=== PATIENT | male | born 1955 | race Caucasian/White ===

== ENCOUNTER 2016-03-30 11:09 | Inpatient (IN) | payer OTHER ==
[~2016-03-30] VITALS: Ht 167.6 cm; Wt 114.3 kg
[2016-03-30 11:11] VITALS: BP 112/73; PULSE 86; RESP 16; TEMP 98.2; O2SAT 94
--- NOTE | 2016-03-30 14:49 | PD ---
HPI Chief Complaint: Edema Time Seen by Provider: 14:49 Travel History International Travel<30 days: No Contact w/Intl Traveler<30days: No Traveled to known affect area: No History of Present Illness HPI 61-year-old male with history of hyperlipidemia, osteoarthritis of the right hip presents to the ED for evaluation of one month history of swelling of the right leg and 9/10 pain. Radiating behind the right knee and the medial aspect of the right thigh. Gradual onset. No alleviating or exacerbating factors reported. Patient denies chest pain, palpitations, shortness of breath, dyspnea on exertion. He states that he is awaiting right hip replacement, has attempted to be more active in effort to lose weight. Patient is a current smoker. [facility] Social History Tobacco Use: Yes Allergies-Medications (Allergen,Severity, Reaction): Coded Allergies: Penicillin (Verified Allergy, Unknown, 03/30/16) Reported Meds & Prescriptions Reported Meds & Active Scripts Active Reported Advil (Ibuprofen) 200 Mg Tab 800 Mg PO BID Levothyroxine (Levothyroxine Sodium) 25 Mcg Tab Unknown Dose PO DAILY Review of Systems Except as stated in HPI: all other systems reviewed are Neg Physical Exam Narrative GENERAL: Well-nourished, well-developed pleasant white male in no acute distress. SKIN: Warm and dry. HEAD: Normocephalic. EYES: No scleral icterus. No injection or drainage. NECK: Supple, trachea midline. No JVD or lymphadenopathy. CARDIOVASCULAR: Regular rate and rhythm without murmurs, gallops, or rubs. 2+ DP and radial pulses bilaterally. RESPIRATORY: Breath sounds clear and equal bilaterally. No accessory muscle use. GASTROINTESTINAL: Abdomen soft, non-tender, nondistended. MUSCULOSKELETAL: No cyanosis. Focused right lower extremity exam: 2+ pitting edema to the knee of the right leg. Homans sign positive. Tender to palpation of the inner thigh. No tenderness to popliteal palpitation. No palpable mass in the popliteal area. Patient is able to flex and extend the knee. 2+ DP pulse. BACK: Nontender without obvious deformity. No CVA tenderness. Data Data Last Documented VS Vital Signs Date Time Temp Pulse Resp B/P Pulse Ox O2 Delivery O2 Flow Rate FiO2 03/30/16 11:11 98.2 86 16 112/73 94 Room Air Orders Complete Blood Count With Diff (03/30/16 14:56) Comprehensive Metabolic Panel (03/30/16 14:56) Act Partial Throm Time (Ptt) (03/30/16 14:56) Prothrombin Time / Inr (Pt) (03/30/16 14:56) Iv Access Insert/Monitor (03/30/16 14:56) Electrocardiogram (03/30/16 14:56) Ecg Monitoring (03/30/16 14:56) Oximetry (03/30/16 14:56) Oxygen Administration (03/30/16 14:56) Chest, Single Ap (03/30/16 14:56) Us Leg Venous Doppler (03/30/16 14:56) Sodium Chloride 0.9% Flush (Ns Flush) (03/30/16 15:00) Acetamin-Hydrocod 325-5 Mg ([place] 5-325 (03/30/16 15:00) Ct Pulmonary Angiogram (03/30/16 16:59) Labs Laboratory Tests Test 03/30/16 15:10 White Blood Count 8.7 TH/MM3 Red Blood Count 4.82 MIL/MM3 Hemoglobin 13.9 GM/DL Hematocrit 41.3 % Mean Corpuscular Volume 85.6 FL Mean Corpuscular Hemoglobin 28.8 PG Mean Corpuscular Hemoglobin 33.6 % Concent Red Cell Distribution Width 12.9 % Platelet Count 287 TH/MM3 Mean Platelet Volume 6.5 FL Neutrophils (%) (Auto) 69.5 % Lymphocytes (%) (Auto) 15.1 % Monocytes (%) (Auto) 12.0 % Eosinophils (%) (Auto) 2.6 % Basophils (%) (Auto) 0.8 % Neutrophils # (Auto) 6.1 TH/MM3 Lymphocytes # (Auto) 1.3 TH/MM3 Monocytes # (Auto) 1.0 TH/MM3 Eosinophils # (Auto) 0.2 TH/MM3 Basophils # (Auto) 0.1 TH/MM3 CBC Comment DIFF FINAL Differential Comment Prothrombin Time 11.1 SEC Prothromb Time International 1.0 RATIO Ratio Activated Partial 31.4 SEC Thromboplast Time Sodium Level 136 MEQ/L Potassium Level 3.8 MEQ/L Chloride Level 104 MEQ/L Carbon Dioxide Level 23.3 MEQ/L Anion Gap 9 MEQ/L Blood Urea Nitrogen 12 MG/DL Creatinine 0.97 MG/DL Estimat Glomerular Filtration 79 ML/MIN Rate Random Glucose 98 MG/DL Calcium Level 9.2 MG/DL Total Bilirubin 0.8 MG/DL Aspartate Amino Transf 31 U/L (AST/SGOT) Alanine Aminotransferase 65 U/L (ALT/SGPT) Alkaline Phosphatase 164 U/L Total Protein 8.3 GM/DL Albumin 3.2 GM/DL [facility] Medical Decision Making Medical Screen Exam Complete: Yes Emergency Medical Condition: Yes Differential Diagnosis DVT versus Rao cyst versus osteoarthritis versus dependent edema versus other Narrative Course 61-year-old male with history of hyperlipidemia, osteoarthritis of the right hip presents to the ED for evaluation of one month history of swelling of the right leg and 9/10 pain. Radiating behind the right knee and the medial aspect of the right thigh. Gradual onset. No alleviating or exacerbating factors reported. Patient denies chest pain, palpitations, shortness of breath, dyspnea on exertion. Vitals reviewed. Physical exam reveals a pleasant white male in no acute distress. Chest clear to auscultation bilaterally, equal lung sounds. The left leg is significantly edematous, Homans sign positive, tender to palpation in the medial aspect of the right thigh. 2+ DP pulse. Highly suspicious for DVT. Lab work, chest x-ray, EKG, ultrasound ordered. By mouth pain meds administered. Patient will be transferred to a bed in the medical pod. Please see oncoming provider note for disposition. Keily Canela Mar 30, 2016 14:49
[2016-03-30] MEDS ORDERED: SODIUM CHLORIDE 0.9% FLUSH 5 ML FLUSH IVF PRN (15:00)
[2016-03-30] MEDS ORDERED: ACETAMINOPHEN/HYDROcodone 325 MG/5 MG TAB PO ONE (15:00)
--- NOTE | 2016-03-30 15:23 | RADRPT ---
EXAM DATE/TIME: 03/30/2016 15:17 [facility] COMPARISON: No previous studies available for comparison. INDICATIONS : Patient sent to the emergency room from his primary doctor to be evaluated for a right lower leg bloo d clot. MEDICAL HISTORY : None. SURGICAL HISTORY : None. ENCOUNTER: Initial ACUITY: 3 days PAIN SCORE: 0/10 LOCATION: Bilateral chest FINDINGS: A single view of the chest demonstrates the lungs to be symmetrically aerated without evidence of mas s, infiltrate or effusion. The cardiomediastinal contours are unremarkable. Osseous structures are intact. CONCLUSION: No acute disease. Ezekiel Glasgow MD on March 30, 2016 at 15:21 Board Certified Radiologist. This report was verified electronically.
[2016-03-30 15:31] LABS: AUTOMATED NEUTROPHIL # 6.1 TH/MM3 (1.8-7.7); BASOPHIL # 0.1 TH/MM3 (0-0.2); BASOPHIL % 0.8 % (0.0-2.0); EOSINOPHIL # 0.2 TH/MM3 (0-0.4); EOSINOPHIL % 2.6 % (0.0-4.0); HEMATOCRIT 41.3 % (39.0-51.0); HEMO FLAGS DIFF FINAL; LYMPH % 15.1 % (9.0-44.0); LYMPHOCYTE # 1.3 TH/MM3 (1.0-4.8); MEAN CELL VOLUME 85.6 FL (80.0-100.0); MEAN CORPUSCULAR HEMOGLOBIN 28.8 PG (27.0-34.0); MEAN CORPUSCULAR HGB CONC 33.6 % (32.0-36.0); NEUT % 69.5 % (16.0-70.0); PLATELET COUNT 287 TH/MM3 (150-450); RED BLOOD COUNT 4.82 MIL/MM3 (4.50-5.90); RED CELL DISTRIBUTION WIDTH 12.9 % (11.6-17.2); WHITE BLOOD COUNT 8.7 TH/MM3 (4.0-11.0)
[2016-03-30 15:37] LABS: APTT (PATIENT) 31.4 SEC (24.3-30.1); PROTHROMBIN TIME - PATIENT 11.1 SEC (9.8-11.6)
[2016-03-30 15:51] LABS: ALT (GPT) 65 U/L (12-78); ANION GAP 9 MEQ/L (5-15); AST (GOT) 31 U/L (15-37); BICARBONATE 23.3 MEQ/L (21.0-32.0); BLOOD UREA NITROGEN 12 MG/DL (7-18); CHLORIDE 104 MEQ/L (98-107); GLOMERULAR FILTRATION RATE 79 ML/MIN (>89); POTASSIUM 3.8 MEQ/L (3.5-5.1); SODIUM (NA) 136 MEQ/L (136-145)
[2016-03-30 15:53] LABS: ALKALINE PHOSPHATASE 164 U/L (45-117); TOTAL BILIRUBIN ADULT 0.8 MG/DL (0.2-1.0)
--- NOTE | 2016-03-30 16:06 | RADRPT ---
EXAM DATE/TIME: 03/30/2016 15:28 [facility] COMPARISON: No previous studies available for comparison. INDICATIONS : Right calf pain. MEDICAL HISTORY : Right leg pain. SURGICAL HISTORY : No surgery history. ENCOUNTER: Initial ACUITY: 1 day PAIN SCORE: 6/10 LOCATION: Right leg. TECHNIQUE: Venous ultrasound of the leg was performed from the inguinal ligament to the proximal calf. Real-og e, color Doppler and spectral tracing, compression and augmentation techniques were used. FINDINGS: There is occlusive thrombus throughout the right lower shunt including the common femoral vein, super ficial femoral vein, popliteal vein, peroneal vein and posterior tibial veins. There is also thrombus in the right iliac vein. CONCLUSION: Occlusive thrombus throughout the right lower extremity. Ezekiel Glasgow MD on March 30, 2016 at 16:00 Board Certified Radiologist. This report was verified electronically.
[2016-03-30] MEDS ORDERED: IBUP-988 PO (17:08)
[2016-03-30] MEDS ORDERED: LEVO25TA4 PO (17:08)
[2016-03-30 17:32] VITALS: O2SAT 98
[2016-03-30] MEDS ORDERED: IOHEXOL 350 MG/ML 10 ML VIAL (for RAD DIAG) IV ONE (17:51)
[2016-03-30 18:16] VITALS: BP 125/62; PULSE 73; RESP 17; O2SAT 98
--- NOTE | 2016-03-30 18:18 | RADRPT ---
EXAM DATE/TIME: 03/30/2016 17:48 [facility] COMPARISON: CHEST SINGLE AP, March 30, 2016, 15:17. INDICATIONS : Right leg edema; evaluate for pulmonary embolism. IV CONTRAST: 75 cc Omnipaque 350 (iohexol) IV RADIATION DOSE: 23.42 CTDIvol (mGy) MEDICAL HISTORY : None SURGICAL HISTORY : None. ENCOUNTER: Initial ACUITY: 4 - 6 days PAIN SCALE: 0/10 LOCATION: chest TECHNIQUE: Volumetric scanning of the chest was performed using a pulmonary embolism protocol MIP images were re constructed. Using automated exposure control and adjustment of the mA and/or kV according to patien t size, radiation dose was kept as low as reasonably achievable to obtain optimal diagnostic quality images. FINDINGS: PULMONARY ARTERIES: Small bilateral sagittal emboli are seen distally in the right and left pulmonary arteries. More dist ally, there is a pulmonary embolus of all lobes of both lungs, most severe at the right lower lobe. N o evidence of significant right ventricular enlargement/strain. LUNGS: Trace atelectasis of both bases. Nothing convincing for pulmonary infarct. No pleural effusion or pne umothorax. PLEURAE: There is no pleural thickening or pleural effusion. MEDIASTINUM: There is good visualization of the great vessels of the middle mediastinum. No evidence of mediastin al or hilar adenopathy/mass. MUSCULOSKELETAL: Within normal limits for patient age. MISCELLANEOUS: The visualized upper abdominal organs demonstrate no acute abnormality. CONCLUSION: Extensive bilateral pulmonary emboli as above, including the distal portions of the right and left ma in pulmonary arteries. Trace bibasilar atelectasis. Lungs otherwise clear. Luis Maza MD on March 30, 2016 at 18:13 Board Certified Radiologist. This report was verified electronically.
[2016-03-30 18:39] VITALS: O2SAT 98
--- NOTE | 2016-03-30 18:40 | PD ---
Physical Exam Date Seen by Provider: Mar 30, 2016 Time Seen by Provider: 17:00 Narrative Patient seen initially by PA in triage, please see PA history for further details. 61-year-old male with history of hypertension, right leg chronic hip pain, here with right leg swelling and pain. Workup initiated for rule out DVT. GENERAL: Well-nourished, well-developed pleasant elderly white male patient in no acute distress. SKIN: Warm and dry. HEAD: Normocephalic. EYES: No scleral icterus. No injection or drainage. NECK: Supple, trachea midline. CARDIOVASCULAR: Regular rate and rhythm without murmurs, gallops, or rubs. RESPIRATORY: Breath sounds equal bilaterally. No accessory muscle use. GASTROINTESTINAL: Abdomen soft, non-tender, nondistended. MUSCULOSKELETAL: No cyanosis, or edema. BACK: Nontender without obvious deformity. No CVA tenderness. EXTREMITIES: No clubbing, cyanosis. Mild right lower leg edema. No joint tenderness, effusion, or edema noted. Right calf tenderness. Laboratory Tests Test 03/30/16 15:10 Mean Platelet Volume 6.5 FL (7.0-11.0) Monocytes (%) (Auto) 12.0 % (0.0-8.0) Monocytes # (Auto) 1.0 TH/MM3 (0-0.9) Activated Partial 31.4 SEC Thromboplast Time (24.3-30.1) Estimat Glomerular Filtration 79 ML/MIN (>89) Rate Alkaline Phosphatase 164 U/L (45-117) Total Protein 8.3 GM/DL (6.4-8.2) Albumin 3.2 GM/DL (3.4-5.0) Last [address] Angiography 03/30/16 1975 Signed Impressions: Service Date/Time: March 17:48 - CONCLUSION: Extensive bilateral pulmonary emboli as above, including the distal portions of the right and left main pulmonary arteries. Trace bibasilar atelectasis. Lungs otherwise clear. Luis Maza MD Lower Extremity Ultrasound 03/30/16 4152 Signed Impressions: Service Date/Time: March 15:28 - CONCLUSION: Occlusive thrombus throughout the right lower extremity. Ezekiel Glasgow MD Chest X-Ray 03/30/16 1869 Signed Impressions: Service Date/Time: March 15:17 - CONCLUSION: No acute disease. Ezekiel Glasgow MD Ultrasound reveals right leg DVT. CTA reveals PE. At this point, patient was initiated on heparin drip for treatment. Case is discussed with Dr. Mancia for admission. Data Data Last Documented VS Vital Signs Date Time Temp Pulse Resp B/P Pulse Ox O2 Delivery O2 Flow Rate FiO2 03/30/16 18:16 73 17 125/62 98 Room Air 03/30/16 11:11 98.2 Orders Complete Blood Count With Diff (03/30/16 14:56) Comprehensive Metabolic Panel (03/30/16 14:56) Act Partial Throm Time (Ptt) (03/30/16 14:56) Prothrombin Time / Inr (Pt) (03/30/16 14:56) Iv Access Insert/Monitor (03/30/16 14:56) Electrocardiogram (03/30/16 14:56) Ecg Monitoring (03/30/16 14:56) Oximetry (03/30/16 14:56) Oxygen Administration (03/30/16 14:56) Chest, Single Ap (03/30/16 14:56) Us Leg Venous Doppler (03/30/16 14:56) Sodium Chloride 0.9% Flush (Ns Flush) (03/30/16 15:00) Acetamin-Hydrocod 325-5 Mg ([place] 5-325 (03/30/16 15:00) Ct Pulmonary Angiogram (03/30/16 16:59) Iohexol 350 Inj (Omnipaque 350 Inj) (03/30/16 17:51) Heparin Infusion RAMAKRISHNA.Q1H (03/30/16 18:34) Heparin Inj (Heparin Inj) (03/30/16 18:45) Heparin Inj (Heparin Inj) (03/31/16 00:45) Heparin Inj (Heparin Inj) (03/31/16 00:45) Heparin-D5w Inj (Heparin-D5w Inj) (03/30/16 18:45) Act Partial Throm Time (Ptt) (03/30/16 18:34) Cbc No Diff, Includes Plts (03/30/16 18:34) Cbc No Diff, Includes Plts (04/02/16 06:00) Act Partial Throm Time (Ptt) (03/31/16 01:34) Occult Blood (Hemoccult) Stool (03/30/16 18:34) Admit Order (Ed Use Only) (03/30/16 18:35) Labs Laboratory Tests Test 03/30/16 15:10 White Blood Count 8.7 TH/MM3 Red Blood Count 4.82 MIL/MM3 Hemoglobin 13.9 GM/DL Hematocrit 41.3 % Mean Corpuscular Volume 85.6 FL Mean Corpuscular Hemoglobin 28.8 PG Mean Corpuscular Hemoglobin 33.6 % Concent Red Cell Distribution Width 12.9 % Platelet Count 287 TH/MM3 Mean Platelet Volume 6.5 FL Neutrophils (%) (Auto) 69.5 % Lymphocytes (%) (Auto) 15.1 % Monocytes (%) (Auto) 12.0 % Eosinophils (%) (Auto) 2.6 % Basophils (%) (Auto) 0.8 % Neutrophils # (Auto) 6.1 TH/MM3 Lymphocytes # (Auto) 1.3 TH/MM3 Monocytes # (Auto) 1.0 TH/MM3 Eosinophils # (Auto) 0.2 TH/MM3 Basophils # (Auto) 0.1 TH/MM3 CBC Comment DIFF FINAL Differential Comment Prothrombin Time 11.1 SEC Prothromb Time International 1.0 RATIO Ratio Activated Partial 31.4 SEC Thromboplast Time Sodium Level 136 MEQ/L Potassium Level 3.8 MEQ/L Chloride Level 104 MEQ/L Carbon Dioxide Level 23.3 MEQ/L Anion Gap 9 MEQ/L Blood Urea Nitrogen 12 MG/DL Creatinine 0.97 MG/DL Estimat Glomerular Filtration 79 ML/MIN Rate Random Glucose 98 MG/DL Calcium Level 9.2 MG/DL Total Bilirubin 0.8 MG/DL Aspartate Amino Transf 31 U/L (AST/SGOT) Alanine Aminotransferase 65 U/L (ALT/SGPT) Alkaline Phosphatase 164 U/L Total Protein 8.3 GM/DL Albumin 3.2 GM/DL [facility] Medical Record Reviewed: Yes Supervised Visit with BRIGIDO: Yes Diagnosis Primary Impression: Pulmonary embolism Admitting Information Admitting Physician Requests: Truman Kim MD Mar 30, 2016 18:40
[2016-03-30] MEDS ORDERED: HEPARIN SODIUM - IV 10,000 UNITS/10 ML VIAL IV ONE (18:45)
[2016-03-30] MEDS ORDERED: ONDANSETRON HCL 4 MG/2 ML VIAL IV PUSH PRN (18:45)
[2016-03-30] MEDS ORDERED: ACETAMINOPHEN/HYDROcodone 325 MG/5 MG TAB PO PRN (18:45)
[2016-03-30] MEDS ORDERED: ACETAMINOPHEN 325 MG TAB PO PRN ×2 (18:45→19:15)
[2016-03-30 18:54] LABS: HEMATOCRIT 36.6 % (39.0-51.0); MEAN CELL VOLUME 84.3 FL (80.0-100.0); MEAN CORPUSCULAR HEMOGLOBIN 28.7 PG (27.0-34.0); MEAN CORPUSCULAR HGB CONC 34.1 % (32.0-36.0); PLATELET COUNT 258 TH/MM3 (150-450); RED BLOOD COUNT 4.34 MIL/MM3 (4.50-5.90); RED CELL DISTRIBUTION WIDTH 13.3 % (11.6-17.2); REVIEW FLAG FINAL
[2016-03-30] MEDS: HEPARIN-D5W INJ 250 ML IV SCH (18:57)
--- NOTE | 2016-03-30 19:06 | HHI.HP ---
[facility] Service [facility] Primary [facility] Physician [facility] Admission Diagnosis pulmonary embolism Diagnoses: (1) DVT (deep venous thrombosis) Diagnosis: Principal (2) PE (pulmonary thromboembolism) Diagnosis: Principal (3) Hip pain, right Diagnosis: Principal (4) Tobacco abuse Diagnosis: Principal Travel History International Travel<30 Days: No Contact w/Intl Traveler <30 Da: No Traveled to Known Affected Are: No History of Present Illness This is a 61-year-old male with a PMH of Hypothyroidism and Right Hip Osteoarthritis who was referred to the ER by his PCP at the [facility] for evaluation of right lower extremity swelling and concern for DVT. Per pt, right leg swelling started approx 1wk ago and has gotten progressively worse over the last 1-2 days. States he has severe right hip OA and has upcoming right hip surgery, so he thought his symptoms were due to his hip. Seen by PCP at [facility] today and referred to ER. Denies fever, chills, chest pain or SOB. On arrival , BP 112/73, HR 86, O2 sat 94% on RA, Afebrile. CBC essentially unremarkable. Chemistry essentially unremarkable. RLE Ultrasound with occlusive thrombus throughout right lower extremity. CXR with no acute findings. CTA Pulm w/ extensive bilateral PE including the distal portions of the right and left main pulmonary arteries. No previous h/o DVT/PE. Started on Heparin gtt in ER. Review of Systems Other ROS: 14 point review of systems otherwise negative. Past Family Social History Past Medical History PMH: Hypothyroidism and Right Hip Osteoarthritis Past Surgical History PAST SURGICAL HISTORY: Rhinoplasty Allergies: Coded Allergies: Penicillin (Verified Allergy, Unknown, 03/30/16) Family History PAST FAMILY HISTORY: Reviewed. No h/o DM or CAD Social History PAST SOCIAL HISTORY: Negative for alcohol or drugs. Positive for tobacco. Physical Exam Vital Signs Vital Signs Date Time Temp Pulse Resp B/P Pulse Ox O2 Delivery O2 Flow Rate FiO2 03/30/16 18:39 98 21 03/30/16 18:16 73 17 125/62 98 Room Air 03/30/16 17:40 17 03/30/16 17:33 78 17 98 Room Air 03/30/16 17:33 98 Room Air 03/30/16 17:32 98 Room Air 03/30/16 11:11 98.2 86 16 112/73 94 Room Air Physical Exam PE: GENERAL: Very pleasant middle-aged white male in no acute distress. HEENT: PERRLA, EOMI. No scleral icterus or conjunctival pallor. No lid lag or facial droop. CARDIOVASCULAR: Regular rate and rhythm. No obvious murmurs to auscultation. No chest tenderness to palpation. RESPIRATORY: No obvious rhonchi or wheezing. Clear to auscultation. Breath sounds equal bilaterally. GASTROINTESTINAL: Abdomen soft, non-tender, nondistended. BS normal. MUSCULOSKELETAL: Extremities without clubbing or cyanosis. RLE edema, erythema. Pulses intact bilaterally. NEUROLOGICAL: Awake, alert and oriented x4. No focal neurologic deficits. Moving both upper and lower extremities spontaneously. Laboratory Laboratory Tests Test 03/30/16 03/30/16 15:10 18:41 White Blood Count 8.7 8.0 Red Blood Count 4.82 4.34 Hemoglobin 13.9 12.5 Hematocrit 41.3 36.6 Mean Corpuscular Volume 85.6 84.3 Mean Corpuscular Hemoglobin 28.8 28.7 Mean Corpuscular Hemoglobin 33.6 34.1 Concent Red Cell Distribution Width 12.9 13.3 Platelet Count 287 258 Mean Platelet Volume 6.5 6.1 Neutrophils (%) (Auto) 69.5 Lymphocytes (%) (Auto) 15.1 Monocytes (%) (Auto) 12.0 Eosinophils (%) (Auto) 2.6 Basophils (%) (Auto) 0.8 Neutrophils # (Auto) 6.1 Lymphocytes # (Auto) 1.3 Monocytes # (Auto) 1.0 Eosinophils # (Auto) 0.2 Basophils # (Auto) 0.1 CBC Comment DIFF FINAL Differential Comment Prothrombin Time 11.1 Prothromb Time International 1.0 Ratio Activated Partial 31.4 Thromboplast Time Sodium Level 136 Potassium Level 3.8 Chloride Level 104 Carbon Dioxide Level 23.3 Anion Gap 9 Blood Urea Nitrogen 12 Creatinine 0.97 Estimat Glomerular Filtration 79 Rate Random Glucose 98 Calcium Level 9.2 Total Bilirubin 0.8 Aspartate Amino Transf 31 (AST/SGOT) Alanine Aminotransferase 65 (ALT/SGPT) Alkaline Phosphatase 164 Total Protein 8.3 Albumin 3.2 Result Diagram: 03/30/16 1841 03/30/16 1510 Assessment and Plan Problem List: (1) DVT (deep venous thrombosis) ICD Code: I82.409 Status: Acute (2) PE (pulmonary thromboembolism) ICD Code: I26.99 Status: Acute (3) Hip pain, right ICD Code: M25.551 Status: Acute (4) Tobacco abuse ICD Code: Z72.0 Status: Acute Assessment and Plan A/P: 1. RLE DVT: Acute. RLE swelling/erythema x1 wk. RLE Doppler w/ occlusive thrombus throughout RLE, images reviewed. No h/o DVT in the past. Decreased mobility secondary to Right Hip Pain and + Tobacco Abuse. Currently on Heparin gtt, will continue w/ anticoagulation. Analgesics as needed. 2. PE: Secondary to RLE DVT. CTA Pulm w/ extensive bilateral PE, including the distal portions of the right left main pulmonary arteries, images reviewed by me. No chest pain or SOB. Check Echo to eval for right heart strain. Continue w/ anticoagulation as above. DuoNeb prn/Symbicort for bronchospasm from PE. 3. Right Hip Pain: Chronic. Scheduled for upcoming surgical intervention. Analgesics/antiemetics as needed. 4. Tobacco Abuse: Counselled. NicoDerm/Ativan prn if needed. 5. DVT Prophylaxis: On Heparin gtt for acute DVT. 6. Social work for d/c planning as needed. 7. Case discussed w/ ER physician at length. Physician Certification 2 Midnight Certification Type: Admission for Inpatient Services Order for Inpatient Services The services are ordered in accordance with Medicare regulations or non- Medicare payer requirements, as applicable. In the case of services not specified as inpatient-only, they are appropriately provided as inpatient services in accordance with the 2-midnight benchmark. Estimated LOS (days): 2 days is the estimated time the patient will need to remain in the hospital, assuming treatment plan goals are met and no additional complications. Post-Hospital Plan: Not yet determined Emily Castro MD Mar 30, 2016 19:06
[2016-03-30 19:11] LABS: APTT (PATIENT) 31.4 SEC (24.3-30.1)
[2016-03-30] MEDS ORDERED: MORPHINE SULFATE 4 MG/ML INJ IV PRN (19:15)
[2016-03-30] MEDS ORDERED: ONDANSETRON HCL 4 MG/2 ML VIAL IVP PRN (19:15)
[2016-03-30] MEDS ORDERED: SODIUM CHLORIDE 0.9% FLUSH 5 ML FLUSH FLUSH PRN (19:15)
[2016-03-30] MEDS ORDERED: BISACODYL 10 MG SUPP PR PRN (19:15)
[2016-03-30] MEDS ORDERED: RESP: ALBUTEROL 2.5 MG/IPRATROPIUM 0.5 MG NEB (PRN) NEB (19:15)
[2016-03-30 20:37] VITALS: BP 124/70; PULSE 74; RESP 16; O2SAT 97
[2016-03-30] MEDS: SODIUM CHLORIDE 0.9% FLUSH 5 ML FLUSH FLUSH SCH (21:00)
[2016-03-30] MEDS: BUDESONIDE-FORMOTEROL 160/4.5 MCG INHALER INH SCH (21:00)
[2016-03-30 22:10] VITALS: BP 146/80; PULSE 72; RESP 20; TEMP 97.7; O2SAT 97
[2016-03-30] MEDS: ACETAMINOPHEN/HYDROcodone 325 MG/5 MG TAB PO PRN (22:13)
[2016-03-31] MEDS ORDERED: HEPARIN SODIUM - IV 10,000 UNITS/10 ML VIAL IV PRN ×2 (00:45)
[2016-03-31 03:06] LABS: APTT (PATIENT) 52.6 SEC (24.3-30.1)
[2016-03-31 04:40] VITALS: BP 128/76; PULSE 65; RESP 16; TEMP 97.6; O2SAT 97
[2016-03-31] MEDS: ACETAMINOPHEN/HYDROcodone 325 MG/5 MG TAB PO PRN ×2 (04:42→22:19)
[2016-03-31] MEDS: HEPARIN-D5W INJ 250 ML IV SCH ×2 (06:57→22:20)
[2016-03-31 08:00] VITALS: BP 116/73; PULSE 78; RESP 18; TEMP 97.8; O2SAT 98
[2016-03-31] MEDS: BUDESONIDE-FORMOTEROL 160/4.5 MCG INHALER INH SCH ×2 (08:15→22:17)
[2016-03-31] MEDS: SODIUM CHLORIDE 0.9% FLUSH 5 ML FLUSH FLUSH SCH ×2 (08:16→21:00)
[2016-03-31 08:33] LABS: AUTOMATED NEUTROPHIL # 4.3 TH/MM3 (1.8-7.7); BASOPHIL # 0.1 TH/MM3 (0-0.2); EOSINOPHIL # 0.3 TH/MM3 (0-0.4); EOSINOPHIL % 3.6 % (0.0-4.0); HEMATOCRIT 37.5 % (39.0-51.0); HEMO FLAGS DIFF FINAL; LYMPHOCYTE # 1.6 TH/MM3 (1.0-4.8); MEAN CORPUSCULAR HEMOGLOBIN 28.8 PG (27.0-34.0); MEAN CORPUSCULAR HGB CONC 34.7 % (32.0-36.0); MONO % 13.4 % (0.0-8.0); PLATELET COUNT 274 TH/MM3 (150-450); RED BLOOD COUNT 4.52 MIL/MM3 (4.50-5.90); RED CELL DISTRIBUTION WIDTH 13.2 % (11.6-17.2); WHITE BLOOD COUNT 7.2 TH/MM3 (4.0-11.0)
[2016-03-31 08:40] LABS: PROTHROMBIN TIME - PATIENT 11.3 SEC (9.8-11.6)
[2016-03-31 08:44] LABS: APTT (PATIENT) 47.3 SEC (24.3-30.1)
[2016-03-31 09:02] LABS: ALT (GPT) 59 U/L (12-78); ANION GAP 6 MEQ/L (5-15); AST (GOT) 30 U/L (15-37); BLOOD UREA NITROGEN 12 MG/DL (7-18); CHLORIDE 104 MEQ/L (98-107); GLOMERULAR FILTRATION RATE 88 ML/MIN (>89); POTASSIUM 4.1 MEQ/L (3.5-5.1); SODIUM (NA) 138 MEQ/L (136-145)
[2016-03-31 09:04] LABS: ALKALINE PHOSPHATASE 153 U/L (45-117); TOTAL BILIRUBIN ADULT 0.7 MG/DL (0.2-1.0)
[2016-03-31 10:55] VITALS: O2SAT 95
[2016-03-31 12:00] VITALS: BP 108/73; PULSE 74; RESP 18; TEMP 98.3; O2SAT 95
--- NOTE | 2016-03-31 13:35 | EKG ---
Date Performed: 03/30/2016 Time Performed: 15:10:58 PTAGE: 61 years EKG: Sinus rhythm NONSPECIFIC T-WAVE ABNORMALITY BORDERLINE ECG NO PREVIOUS TRACING DOCTOR: Isa Marte Interpretating Date/Time 03/31/2016 13:33:16
[2016-03-31 16:00] VITALS: BP 122/72; PULSE 115; RESP 18; TEMP 98.8; O2SAT 94
--- NOTE | 2016-03-31 16:50 | HHI.PR ---
Subjective Remarks This report is in ERROR Please disregard this report and all prior copies ! This report is in ERROR Please disregard this report and all prior copies ! This report is in ERROR Please disregard this report and all prior copies ! Objective Vitals Vital Signs Date Time Temp Pulse Resp B/P Pulse Ox O2 Delivery O2 Flow Rate FiO2 03/31/16 12:00 98.3 74 18 108/73 95 03/31/16 10:55 95 21 03/31/16 08:00 97.8 78 18 116/73 98 03/31/16 04:40 97.6 65 16 128/76 97 03/30/16 22:10 97.7 72 20 146/80 97 03/30/16 21:26 Room Air 03/30/16 20:37 74 16 124/70 97 Room Air 03/30/16 18:39 98 21 03/30/16 18:16 73 17 125/62 98 Room Air 03/30/16 17:40 17 03/30/16 17:33 78 17 98 Room Air 03/30/16 17:33 98 Room Air 03/30/16 17:32 98 Room Air I/O 03/30/16 03/30/16 03/30/16 03/31/16 03/31/16 03/31/16 07:00 15:00 23:00 07:00 15:00 23:00 Intake Total 440 ml Balance 440 ml Intake Oral 240 ml Other 200 ml Result Diagram: 03/31/1682003/31/1621 A/P Problem List: (1) DVT (deep venous thrombosis) ICD Code: I82.409 Status: Acute (2) PE (pulmonary thromboembolism) ICD Code: I26.99 Status: Acute (3) Hip pain, right ICD Code: M25.551 Status: Acute (4) Tobacco abuse ICD Code: Z72.0 Status: Acute Assessment and Plan RLE DVT RLE swelling/erythema x1 wk. RLE Doppler w/ occlusive thrombus throughout RLE. No h/o DVT in the past. Decreased mobility secondary to right hip pain and + tobacco abuse. - Currently on Heparin gtt, will continue w/ anticoagulation. - Analgesics as needed. PE Secondary to RLE DVT. CTA Pulm w/ extensive bilateral PE, including the distal portions of the right left main pulmonary arteries. No chest pain or SOB. - Check Echo to eval for right heart strain. - Continue w/ anticoagulation as above. - DuoNeb prn/Symbicort for bronchospasm from PE. Right hip pain Chronic. Scheduled for upcoming surgical intervention. - Analgesics/antiemetics as needed. Tobacco Abuse Counselled. - NicoDerm/Ativan prn if needed. DVT Prophylaxis: On Heparin gtt for acute DVT. Dmitriy Ley DO Mar 31, 2016 16:49
--- NOTE | 2016-03-31 17:39 | HHI.PR ---
Subjective Remarks The patient said that he had significant pain in his right leg. He denied any soreness of breath or chest pain. Family and nursing at the bedside. The patient says he is going to have to have right hip surgery for severe osteoarthritis. Objective Vitals Vital Signs Date Time Temp Pulse Resp B/P Pulse Ox O2 Delivery O2 Flow Rate FiO2 03/31/16 12:00 98.3 74 18 108/73 95 03/31/16 10:55 95 21 03/31/16 08:00 97.8 78 18 116/73 98 03/31/16 04:40 97.6 65 16 128/76 97 03/30/16 22:10 97.7 72 20 146/80 97 03/30/16 21:26 Room Air 03/30/16 20:37 74 16 124/70 97 Room Air 03/30/16 18:39 98 21 03/30/16 18:16 73 17 125/62 98 Room Air 03/30/16 17:40 17 03/30/16 17:33 78 17 98 Room Air 03/30/16 17:33 98 Room Air I/O 03/30/16 03/30/16 03/30/16 03/31/16 03/31/16 03/31/16 07:00 15:00 23:00 07:00 15:00 23:00 Intake Total 440 ml Balance 440 ml Intake Oral 240 ml Other 200 ml Result Diagram: 03/31/16 0821 03/31/16 [address] Angiography 03/30/16 1659 Signed Impressions: Service Date/Time: March 17:48 - CONCLUSION: Extensive bilateral pulmonary emboli as above, including the distal portions of the right and left main pulmonary arteries. Trace bibasilar atelectasis. Lungs otherwise clear. Luis Maza MD Lower Extremity Ultrasound 03/30/16 6140 Signed Impressions: Service Date/Time: March 15:28 - CONCLUSION: Occlusive thrombus throughout the right lower extremity. Ezekiel Glasgow MD Chest X-Ray 03/30/16 4866 Signed Impressions: Service Date/Time: March 15:17 - CONCLUSION: No acute disease. Ezekiel Glasgow MD Objective Remarks GENERAL: No acute distress, resting comfortably. HEENT: PERRLA, EOMI. No scleral icterus or conjunctival pallor. No lid lag or facial droop. CARDIOVASCULAR: Regular rate and rhythm. No obvious murmurs to auscultation. No chest tenderness to palpation. RESPIRATORY: No obvious rhonchi or wheezing. Clear to auscultation. Breath sounds equal bilaterally. GASTROINTESTINAL: Abdomen soft, non-tender, nondistended. BS normal. MUSCULOSKELETAL: Extremities without clubbing or cyanosis. RLE with 2-3+ edema, erythema, tenderness. Pulses intact bilaterally. NEUROLOGICAL: Awake, alert and oriented x4. No focal neurologic deficits. Moving both upper and lower extremities spontaneously. PSYCH: Mood and affect appropriate. Medications and IVs Current Medications Medications (Trade) Dose Ordered Sig/Shravan Route Start Time Stop Time Status Last Admin (Heparin Inj) 5,000 units UNSCH PRN IV 03/31/16 00:45 Heparin Sodium (Porcine) 2500 units 2,500 units UNSCH PRN IV 03/31/16 00:45 (Heparin-D5W Inj) 250 ml @ 0 mls/hr TITRATE IV 03/30/16 18:45 03/31/16 06:57 (Tylenol) 650 mg Q4H PRN PO 03/30/16 18:45 ([place] 5-325 Mg) 1 tab Q4H PRN PO 03/30/16 18:45 (Symbicort 160-4.5 Inh) 2 puff Q12HR INH 03/30/16 21:00 03/31/16 08:15 (NS Flush) 2 ml UNSCH PRN FLUSH 03/30/16 19:15 (NS Flush) 2 ml BID FLUSH 03/30/16 21:00 (Zofran Inj) 4 mg Q6H PRN IVP 03/30/16 19:15 (Dulcolax Supp) 10 mg DAILY PRN [place] 03/30/16 19:15 (Tylenol) 650 mg Q6H PRN PO 03/30/16 19:15 ([place] 5-325 Mg) 1 tab Q4H PRN PO 03/30/16 19:15 03/31/16 04:42 (Morphine Inj) 2 mg Q3H PRN IV 03/30/16 19:15 A/P Problem List: (1) DVT (deep venous thrombosis) ICD Code: I82.409 Status: Acute (2) PE (pulmonary thromboembolism) ICD Code: I26.99 Status: Acute (3) Hip pain, right ICD Code: M25.551 Status: Acute (4) Tobacco abuse ICD Code: Z72.0 Status: Acute Assessment and Plan RLE DVT RLE swelling/erythema x1 wk. RLE Doppler w/ occlusive thrombus throughout RLE. No h/o DVT in the past. Decreased mobility secondary to right hip pain and + tobacco abuse. - Currently on Heparin gtt, will continue w/ anticoagulation. Discussed with patient, will likely switch to Eliquis or Xarelto at the time of discharge. - Analgesics as needed. - PT. PE Secondary to RLE DVT. CTA Pulm w/ extensive bilateral PE, including the distal portions of the right left main pulmonary arteries. No chest pain or SOB. - Check Echo to eval for right heart strain. - Continue w/ anticoagulation as above. - DuoNeb prn/Symbicort for bronchospasm from PE. Right hip pain Chronic. Scheduled for upcoming surgical intervention. - Analgesics/antiemetics as needed. - outpt follow-up. Tobacco Abuse Counselled. - NicoDerm/Ativan prn if needed. DVT Prophylaxis: On Heparin gtt for acute DVT. Discharge Planning Awaiting clinical improvement. Dmitriy Ley DO Mar 31, 2016 17:39
[2016-03-31] MEDS: SENNOSIDES 8.6 MG TAB PO SCH (17:45)
--- NOTE | 2016-03-31 19:02 | EC ---
Study Study Date:03/31/2016 STUDY CONCLUSIONS SUMMARY - Left ventricle: The cavity size was normal. Wall thickness was at the upper limits of normal. Systolic function was normal. The estimated ejection fraction was in the range of 50% to 55%. Wall motion was normal; there were no regional wall motion abnormalities. - Mitral valve: Mild regurgitation. - Left atrium: The atrium was mildly dilated. - Tricuspid valve: Mild regurgitation. If LV function is below 40, please consider prescribing an ACEI or ARB or document rationale for non-use. PROCEDURE DATA STUDY STATUS: Elective. Procedure: Transthoracic echocardiography. Image quality was fair. Scanning was performed from the parasternal, apical, and subcostal acoustic windows. Study completion: The patient tolerated the procedure well. Transthoracic echocardiography. M-mode, complete 2D, complete spectral Doppler, and color Doppler. Patient status: Inpatient. CARDIAC ANATOMY LEFT VENTRICLE: The cavity size was normal. Wall thickness was at the upper limits of normal. Systolic function was normal. The estimated ejection fraction was in the range of 50% to 55%. Wall motion was normal; there were no regional wall motion abnormalities. AORTIC VALVE: Trileaflet; normal thickness leaflets. Doppler: Transvalvular velocity was within the normal range. There was no stenosis. No regurgitation. AORTA: The aorta was mildly dilated. Aortic root: The aortic root was normal in size. MITRAL VALVE: Structurally normal valve. Doppler: Transvalvular velocity was within the normal range. There was no evidence for stenosis. Mild regurgitation. LEFT ATRIUM: The atrium was mildly dilated. RIGHT VENTRICLE: The cavity size was normal. Wall thickness was normal. PULMONIC VALVE: Doppler: Transvalvular velocity was within the normal range. There was no evidence for stenosis. No regurgitation. TRICUSPID VALVE: Structurally normal valve. Doppler: Transvalvular velocity was within the normal range. Mild regurgitation. PULMONARY ARTERY: The main pulmonary artery was normal-sized. Systolic pressure was within the normal range. RIGHT ATRIUM: The atrium was normal in size. PERICARDIUM: There was no pericardial effusion. SYSTEMIC VEINS: Inferior vena cava: The vessel was normal in size. BASIC MEASUREMENTS ADULT NORMAL Left ventricle LV internal dimension, ED, chordal level, 44.6 mm 43-52 PLAX LV internal dimension, ES, chordal level, 34.6 mm 23-38 PLAX Fractional shortening, chordal level, PLAX *22 % >29 LV posterior wall thickness, ED 11.3 mm IVS/LVPW ratio, ED 1.02 <1.3 Ventricular septum Septal thickness, ED 11.5 mm Aortic valve Leaflet separation 25 mm 15-26 Right ventricle RV internal dimension, ED, PLAX 36.4 mm 19-38 BASIC MEASUREMENTS ADULT NORMAL Aortic valve Leaflet separation 25 mm 15-26 Aorta Root diameter, ED *39 mm 20-37 Left atrium Anterior-posterior dimension, ES *47 mm 19-40 LA/aortic root ratio 1.21 LEGEND: Mean values are shown as u=mean value. Asterisk (*) hines values outside specified normal range. Prepared and signed by Abbie Steele [id number]
[2016-03-31 20:01] VITALS: BP 103/69; PULSE 88; RESP 20; TEMP 99.1; O2SAT 94
[2016-03-31] MEDS: DOCUSATE SODIUM 100 MG CAP PO SCH (22:18)
[2016-04-01] VITALS (7 sets, daily range): BP systolic 107–121; BP diastolic 65–80; PULSE 63–79; RESP 16; TEMP 96.3–98.5; O2SAT 95–97
[2016-04-01] MEDS: LEVOTHYROXINE SODIUM 25 MCG TAB PO SCH (06:04)
[2016-04-01] MEDS: ACETAMINOPHEN/HYDROcodone 325 MG/5 MG TAB PO PRN ×3 (06:04→23:12)
[2016-04-01 07:08] LABS: APTT (PATIENT) 53.4 SEC (24.3-30.1)
[2016-04-01 07:16] LABS: BICARBONATE 27.8 MEQ/L (21.0-32.0); MAGNESIUM 2.2 MG/DL (1.5-2.5); POTASSIUM 3.9 MEQ/L (3.5-5.1)
[2016-04-01 07:24] LABS: HEMATOCRIT 37.6 % (39.0-51.0); MEAN CELL VOLUME 83.5 FL (80.0-100.0); MEAN CORPUSCULAR HEMOGLOBIN 28.5 PG (27.0-34.0); MEAN CORPUSCULAR HGB CONC 34.1 % (32.0-36.0); PLATELET COUNT 301 TH/MM3 (150-450); RED CELL DISTRIBUTION WIDTH 13.1 % (11.6-17.2); REVIEW FLAG FINAL; WHITE BLOOD COUNT 7.4 TH/MM3 (4.0-11.0)
[2016-04-01] MEDS: SODIUM CHLORIDE 0.9% FLUSH 5 ML FLUSH FLUSH SCH ×2 (09:00→21:24)
[2016-04-01] MEDS: SENNOSIDES 8.6 MG TAB PO SCH (10:25)
[2016-04-01] MEDS: BUDESONIDE-FORMOTEROL 160/4.5 MCG INHALER INH SCH ×2 (10:25→21:23)
[2016-04-01] MEDS: DOCUSATE SODIUM 100 MG CAP PO SCH ×2 (10:25→21:23)
[2016-04-01] MEDS: HEPARIN-D5W INJ 250 ML IV SCH (12:33)
--- NOTE | 2016-04-01 15:19 | HHI.PR ---
Subjective Remarks The patient said he felt a lot better but he still rated the pain as an 8 out of 10 in severity. He has been ambulating. He believes there is less swelling today. He would like to go home tomorrow if possible. Objective Vitals Vital Signs Date Time Temp Pulse Resp B/P Pulse Ox O2 Delivery O2 Flow Rate FiO2 04/01/16 08:00 96.3 68 16 110/80 95 04/01/16 03:30 97.9 65 16 121/69 97 04/01/16 00:17 98.5 79 16 110/76 96 03/31/16 20:01 99.1 88 20 103/69 94 03/31/16 19:30 Room Air 03/31/16 16:00 98.8 115 18 122/72 94 I/O 03/31/16 03/31/16 03/31/16 04/01/16 04/01/16 04/01/16 07:00 15:00 23:00 07:00 15:00 23:00 Intake Total 440 ml 500 ml 1006 ml 620 ml Output Total 650 ml 300 ml Balance 440 ml -150 ml 706 ml 620 ml Intake Oral 240 ml 500 ml 720 ml 480 ml Other 200 ml 286 ml 140 ml Output Urine Total 650 ml 300 ml # Voids 1 # Bowel Movements 0 Result Diagram: 04/01/1662604/01/[address] Angiography 03/30/161658 Signed Impressions: Service Date/Time: March 17:48 - CONCLUSION: Extensive bilateral pulmonary emboli as above, including the distal portions of the right and left main pulmonary arteries. Trace bibasilar atelectasis. Lungs otherwise clear. Luis Maza MD Lower Extremity Ultrasound 03/30/16 2446 Signed Impressions: Service Date/Time: March 15:28 - CONCLUSION: Occlusive thrombus throughout the right lower extremity. Ezekiel Glasgow MD Chest X-Ray 03/30/161455 Signed Impressions: Service Date/Time: March 15:17 - CONCLUSION: No acute disease. Ezekiel Glasgow MD Objective Remarks GENERAL: No acute distress, resting comfortably. HEENT: PERRLA, EOMI. No scleral icterus or conjunctival pallor. No lid lag or facial droop. CARDIOVASCULAR: Regular rate and rhythm. No obvious murmurs to auscultation. No chest tenderness to palpation. RESPIRATORY: No obvious rhonchi or wheezing. Clear to auscultation. Breath sounds equal bilaterally. GASTROINTESTINAL: Abdomen soft, non-tender, nondistended. BS normal. MUSCULOSKELETAL: Extremities without clubbing or cyanosis. RLE with 2+ edema, minimal tenderness, no erythema. Pulses intact bilaterally. NEUROLOGICAL: Awake, alert and oriented x4. No focal neurologic deficits. Moving both upper and lower extremities spontaneously. PSYCH: Mood and affect appropriate. Medications and IVs Current Medications Medications (Trade) Dose Ordered Sig/Shravan Route Start Time Stop Time Status Last Admin (Heparin Inj) 5,000 units UNSCH PRN IV 03/31/16 00:45 Heparin Sodium (Porcine) 2500 units 2,500 units UNSCH PRN IV 03/31/16 00:45 (Heparin-D5W Inj) 250 ml @ 0 mls/hr TITRATE IV 03/30/16 18:45 04/01/16 12:33 (Tylenol) 650 mg Q4H PRN PO 03/30/16 18:45 (Symbicort 160-4.5 Inh) 2 puff Q12HR INH 03/30/16 21:00 04/01/16 10:25 (NS Flush) 2 ml UNSCH PRN FLUSH 03/30/16 19:15 (NS Flush) 2 ml BID FLUSH 03/30/16 21:00 (Zofran Inj) 4 mg Q6H PRN IVP 03/30/16 19:15 (Dulcolax Supp) 10 mg DAILY PRN [place] 03/30/16 19:15 (Tylenol) 650 mg Q6H PRN PO 03/30/16 19:15 ([place] 5-325 Mg) 1 tab Q4H PRN PO 03/30/16 19:15 03/31/16 04:42 (Morphine Inj) 2 mg Q3H PRN IV 03/30/16 19:15 ([place] 5-325 Mg) 2 tab Q4H PRN PO 03/31/16 18:45 04/01/16 06:04 (Colace) 100 mg BID PO 03/31/16 21:00 04/01/16 10:25 (Senokot) 17.2 mg DAILY PO 03/31/16 17:45 04/01/16 10:25 (Synthroid) 25 mcg DAILY@06 PO 04/01/16 06:00 04/01/16 06:04 A/P Problem List: (1) DVT (deep venous thrombosis) ICD Code: I82.409 Status: Acute (2) PE (pulmonary thromboembolism) ICD Code: I26.99 Status: Acute (3) Hip pain, right ICD Code: M25.551 Status: Acute (4) Tobacco abuse ICD Code: Z72.0 Status: Acute Assessment and Plan RLE DVT RLE swelling/erythema x1 wk. RLE Doppler w/ occlusive thrombus throughout RLE. No h/o DVT in the past. Decreased mobility secondary to right hip pain and + tobacco abuse. Improved on heparin. - Currently on Heparin gtt. Will likely switch to Xarelto in AM per discussion with pt. - Analgesics as needed. - PT. PE Secondary to RLE DVT. CTA Pulm w/ extensive bilateral PE, including the distal portions of the right left main pulmonary arteries. No chest pain or SOB. Echo with EF 50-55%. Satting well on room air. - Continue w/ anticoagulation as above. - DuoNeb prn/Symbicort for bronchospasm from PE. Right hip pain Chronic. Scheduled for upcoming surgical intervention. - Analgesics/antiemetics as needed. - outpt follow-up. Tobacco Abuse Counselled. - NicoDerm/Ativan prn if needed. DVT Prophylaxis: On Heparin gtt for acute DVT. Discharge Planning Anticipate discharge home in 1-2 days. Dmitriy Ley DO Apr 01, 2016 15:18
[2016-04-01] MEDS ORDERED: IBUPROFEN 800 MG TAB PO ONE (16:00)
--- NOTE | 2016-04-01 17:50 | HHI.DCPOC ---
Discharge Care Plan Diagnosis: (1) PE (pulmonary thromboembolism) (2) DVT (deep venous thrombosis) Your Health Problems Are: Inflammation Swelling Leg Swelling Exercise Tolerance Goals to Promote Your Health * To prevent worsening of your condition and complications * To maintain your health at the optimal level Directions to Meet Your Goals Take your medications as prescribed Follow your dietary instruction Follow activity as directed Keep your appointments as scheduled Take your immunizations and boosters as scheduled If your symptoms worsen call your PCP, if no PCP go to Urgent Care Center or Emergency Room Smoking is Dangerous to Your Health. Avoid second hand smoke Call the 24-hour hour crisis hotline for domestic abuse at Dmitriy Ley DO Apr 01, 2016 17:50
--- NOTE | 2016-04-01 17:53 | HHI.FF ---
Face to Face Verification Diagnosis: (1) DVT (deep venous thrombosis) (2) PE (pulmonary thromboembolism) Physical Therapy Order: Evaluate and Treat, Improve ambulation, Strength and gait training Home Health Nursing Order: Medical education Signs/symptoms of disease process Medication education-adverse effect Nursing assessment with vital signs I have seen patient Giorgi Lieberman on 04/01/16. My clinical findings support the need for the requested home health care services because: Ltd mobility - disease progression High risk of falls I certify that my clinical findings support that this patient is homebound because: Unsteady gait/balance Unsafe to leave home unassisted Dmitriy Ley DO Apr 01, 2016 17:53
[2016-04-02] VITALS: BP 119/71; PULSE 68; RESP 16; TEMP 98.1; O2SAT 97
[2016-04-02] MEDS: HEPARIN-D5W INJ 250 ML IV SCH (02:43)
[2016-04-02 04:02] VITALS: BP 119/81; PULSE 70; RESP 16; TEMP 98.2; O2SAT 96
[2016-04-02] MEDS: LEVOTHYROXINE SODIUM 25 MCG TAB PO SCH (06:41)
[2016-04-02 08:00] VITALS: BP 119/76; PULSE 57; RESP 16; TEMP 96.6; O2SAT 97
[2016-04-02 08:04] LABS: HEMATOCRIT 36.4 % (39.0-51.0); MEAN CELL VOLUME 83.7 FL (80.0-100.0); MEAN CORPUSCULAR HEMOGLOBIN 28.7 PG (27.0-34.0); MEAN CORPUSCULAR HGB CONC 34.3 % (32.0-36.0); PLATELET COUNT 290 TH/MM3 (150-450); RED BLOOD COUNT 4.35 MIL/MM3 (4.50-5.90); RED CELL DISTRIBUTION WIDTH 13.3 % (11.6-17.2); REVIEW FLAG FINAL; WHITE BLOOD COUNT 5.6 TH/MM3 (4.0-11.0)
[2016-04-02] MEDS: BUDESONIDE-FORMOTEROL 160/4.5 MCG INHALER INH SCH (08:22)
[2016-04-02] MEDS: SODIUM CHLORIDE 0.9% FLUSH 5 ML FLUSH FLUSH SCH (08:23)
[2016-04-02] MEDS: DOCUSATE SODIUM 100 MG CAP PO SCH (08:23)
[2016-04-02] MEDS: SENNOSIDES 8.6 MG TAB PO SCH (08:23)
[2016-04-02] MEDS ORDERED: RIVA1TAB PO (08:27)
[2016-04-02] MEDS ORDERED: HYDR-3516 PO (08:27)
--- NOTE | 2016-04-02 08:34 | HHI.DS ---
Discharge Summary Admission Date Mar 30, 2016 at 18:37 Discharge Date: Apr 02, 2016 Admitting Diagnosis pulmonary embolism (1) DVT (deep venous thrombosis) ICD Code: I82.409 Diagnosis: Principal (2) PE (pulmonary thromboembolism) ICD Code: I26.99 Diagnosis: Principal (3) Hip pain, right ICD Code: M25.551 (4) Tobacco abuse ICD Code: Z72.0 Procedures None. Brief History - From Admission This is a 61-year-old male with a PMH of Hypothyroidism and Right Hip Osteoarthritis who was referred to the ER by his PCP at the [facility] for evaluation of right lower extremity swelling and concern for DVT. Per pt, right leg swelling started approx 1wk ago and has gotten progressively worse over the last 1-2 days. States he has severe right hip OA and has upcoming right hip surgery, so he thought his symptoms were due to his hip. Seen by PCP at [facility] today and referred to ER. Denies fever, chills, chest pain or SOB. On arrival , BP 112/73, HR 86, O2 sat 94% on RA, Afebrile. CBC essentially unremarkable. Chemistry essentially unremarkable. RLE Ultrasound with occlusive thrombus throughout right lower extremity. CXR with no acute findings. CTA Pulm w/ extensive bilateral PE including the distal portions of the right and left main pulmonary arteries. No previous h/o DVT/PE. Started on Heparin gtt in ER. CBC/BMP: 04/02/16 0703 04/01/16 0627 Significant Findings Laboratory Tests Test 03/30/16 03/30/16 03/31/16 03/31/16 15:10 18:41 02:19 08:21 Mean Platelet Volume 6.5 FL 6.1 FL 6.3 FL (7.0-11.0) (7.0-11.0) (7.0-11.0) Monocytes (%) (Auto) 12.0 % 13.4 % (0.0-8.0) (0.0-8.0) Monocytes # (Auto) 1.0 TH/MM3 1.0 TH/MM3 (0-0.9) (0-0.9) Activated Partial 31.4 SEC 31.4 SEC 52.6 SEC 47.3 SEC Thromboplast Time (24.3-30.1) (24.3-30.1) (24.3-30.1) (24.3-30.1) Estimat Glomerular Filtration 79 ML/MIN (>89) 88 ML/MIN (>89) Rate Alkaline Phosphatase 164 U/L 153 U/L (45-117) (45-117) Total Protein 8.3 GM/DL (6.4-8.2) Albumin 3.2 GM/DL 2.7 GM/DL (3.4-5.0) (3.4-5.0) Red Blood Count 4.34 MIL/MM3 (4.50-5.90) Hemoglobin 12.5 GM/DL (13.0-17.0) Hematocrit 36.6 % 37.5 % (39.0-51.0) (39.0-51.0) Test 04/01/16 04/02/16 06:27 07:03 Hemoglobin 12.8 GM/DL 12.5 GM/DL (13.0-17.0) (13.0-17.0) Hematocrit 37.6 % 36.4 % (39.0-51.0) (39.0-51.0) Mean Platelet Volume 6.4 FL 6.6 FL (7.0-11.0) (7.0-11.0) Activated Partial 53.4 SEC Thromboplast Time (24.3-30.1) Estimat Glomerular Filtration 78 ML/MIN (>89) Rate Red Blood Count 4.35 MIL/MM3 (4.50-5.90) Imaging Last Impressions CT Angiography 03/30/16 0869 Signed Impressions: Service Date/Time: March 17:48 - CONCLUSION: Extensive bilateral pulmonary emboli as above, including the distal portions of the right and left main pulmonary arteries. Trace bibasilar atelectasis. Lungs otherwise clear. Luis Maza MD Lower Extremity Ultrasound 03/30/16 1456 Signed Impressions: Service Date/Time: March 15:28 - CONCLUSION: Occlusive thrombus throughout the right lower extremity. Ezekiel Glasgow MD Chest X-Ray 03/30/16 1456 Signed Impressions: Service Date/Time: March 15:17 - CONCLUSION: No acute disease. Ezekiel Glasgow MD PE at Discharge GENERAL: No acute distress, resting comfortably. HEENT: PERRLA, EOMI. No scleral icterus or conjunctival pallor. No lid lag or facial droop. CARDIOVASCULAR: Regular rate and rhythm. No obvious murmurs to auscultation. No chest tenderness to palpation. RESPIRATORY: No obvious rhonchi or wheezing. Clear to auscultation. Breath sounds equal bilaterally. GASTROINTESTINAL: Abdomen soft, non-tender, nondistended. BS normal. MUSCULOSKELETAL: Extremities without clubbing or cyanosis. RLE with 2+ edema, minimal tenderness, no erythema. Pulses intact bilaterally. NEUROLOGICAL: Awake, alert and oriented x4. No focal neurologic deficits. Moving both upper and lower extremities spontaneously. PSYCH: Mood and affect appropriate. Pt update on day of discharge The patient said that he felt better today. He said the pain was well- controlled and his right leg. He denied any shortness of breath or chest pain. He wanted to go home. Discussed with nursing. Hospital Course RLE DVT RLE swelling/erythema x1 wk. RLE Doppler w/ occlusive thrombus throughout RLE. No h/o DVT in the past. He was started on a Heparin gtt. He received analgesics as needed. He worked with physical therapy and has been able to ambulate safely. Will switch to Xarelto per discussion with pt. Case management assisted with getting the pt the initial month's supply of medication. The pt will follow up with his primary care doctor. PE CTA Pulm w/ extensive bilateral PE, including the distal portions of the right left main pulmonary arteries. The pt denies chest pain or shortness of breath. Echo with EF 50-55%. He was started on anticoagulation as above. He received DuoNebs and oxygen as needed. He saturated well on the home oxygen walk test. He will follow-up with the [facility]. Pt Condition on Discharge: Stable Discharge Disposition: Disch w/ Home Health Serv Discharge Time: > 30 minutes Discharge Instructions DIET: Follow Instructions for: Heart Healthy Diet Activities you can perform: Weight Bearing as [facility] Follow up Referrals: PCP Follow-up - 3-5 Days New Medications: Rivaroxaban Starter Pack 15 & 20 mg (Xarelto Starter Pack 15 & 20 mg) 1 Tab Tab 1 TAB PO DIRECTED 15 mg PO BID for 21 days followed by 20 mg PO daily Blood Clot Prevention #1 Ref 0 PACK Hydrocodone-Acetaminophen (Hydrocodone-Acetaminophen) 5-325 mg Tab 1 TAB PO Q4H PRN pain #20 TAB Continued Medications: Levothyroxine (Levothyroxine) 25 Mcg Tab 25 MCG PO DAILY before breakfast Thyroid #30 Ref 0 TAB Discontinued Medications: Ibuprofen (Advil) 200 Mg Tab 800 MG PO BID Pain Management Ref 0 TAB Dmitriy Ley DO Apr 02, 2016 08:34
[2016-04-02] MEDS ORDERED: RIVAROXABAN 15 MG TAB PO SCH (09:00)
[2016-04-02 11:30] VITALS: O2SAT 97
[2016-04-02 12:00] VITALS: BP 115/69; PULSE 70; RESP 16; TEMP 97.2; O2SAT 97
== END 2016-04-02 15:40 | disposition home health service (06) | DRG 299 ==
LOC: NETRI 11:09 → NEDA 18:37 → N06B 21:45
PROVIDERS: ADMIT Hospitalist; ATTEND Hospitalist
DX: I82.411 Acute embolism and thrombosis of right femoral vein (principal); I26.99 Other pulmonary embolism without acute cor pulmonale; I82.431 Acute embolism and thrombosis of right popliteal vein; I82.441 Acute embolism and thrombosis of right tibial vein; I82.811 Embolism and thrombosis of superficial veins of right lower extremity; E78.5 Hyperlipidemia, unspecified; I10 Essential (primary) hypertension; E03.9 Hypothyroidism, unspecified; M16.11 Unilateral primary osteoarthritis, right hip; F17.210 Nicotine dependence, cigarettes, uncomplicated; Z88.0 Allergy status to penicillin
CPT/HCPCS: 71010; 71275; 80048; 80053; 83735; 85025; 85027; 85610; 85730; 93005; 93306; 93971; 94620; J1644; Q9967